=== PATIENT | female | born 2000 | race Two or more races ===

== ENCOUNTER 2022-08-23 12:33 | Emergency (ER) | payer MEDICAID ==
[~2022-08-23] VITALS: Ht 165.1 cm; Wt 76.2 kg
--- NOTE | 2022-08-23 13:16 | NUR ---
URINE SAMPLE OBTAINED AND SENT TO LAB
--- NOTE | 2022-08-23 13:56 | NUR ---
PT STATES "I WANT A WHOLE STD PANEL" DR. BOND MADE AWARE
[2022-08-23] MEDS ORDERED: DOXYCYCLINE HYCLATE (100 MG) 100 MG TABLET PO ONE (14:00)
[2022-08-23] MEDS ORDERED: CEFTRIAXONE 500 MG VIAL IM ONE (14:00)
--- NOTE | 2022-08-23 14:07 | NUR ---
LAB CALLED FOR SWAB
[2022-08-23] MEDS ORDERED: DOXYCYCLINE HYCLATE (100 MG) 100 MG TABLET ONE (14:17)
[2022-08-23] MEDS ORDERED: CEFTRIAXONE 500 MG VIAL ONE (14:17)
--- NOTE | 2022-08-23 14:30 | NUR ---
GENITAL SWABS OBTAINED AND SENT TO LAB
--- NOTE | 2022-08-23 14:59 | NUR ---
LAB CALLED AND CONFIRMED THAT THEY HAVE URINE SPECIMEN. LAB REPORTS THEY WILL RUN THE TEST. PER DR. BOND HOLD ON MEDICATION UNTIL URINE RESULTS
[2022-08-23 15:13] LABS: COLOR,URINE ORANGE (YELLOW)
[2022-08-23 15:22] LABS: BACTERIA,URINE 2+ /HPF (None Seen); RBC,URINE 0-2 /HPF (0-2); SQUAMOUS EPITHELIAL CELL,UR 0-2 /HPF (None Seen); WBC,URINE 51-80 /HPF (0-3)
[2022-08-23] MEDS ORDERED: NITR100C6 PO (15:25)
[2022-08-23] MEDS ORDERED: DOXY100C2 PO (15:25)
[2022-08-23] MEDS ORDERED: PHEN-704 PO (15:25)
[2022-08-23 15:40] VITALS: BP 134/80
== END 2022-08-23 15:41 | disposition home or self-care (01) ==
LOC: ER 12:45
DX: S93.401A Sprain of unspecified ligament of right ankle, initial encounter (principal); N39.0 Urinary tract infection, site not specified; Z20.2 Contact with and (suspected) exposure to infections with a predominantly sexual mode of transmission; Z79.2 Long term (current) use of antibiotics; Z79.899 Other long term (current) drug therapy; W22.8XXA Striking against or struck by other objects, initial encounter; Y93.89 Activity, other specified; Y92.89 Other specified places as the place of occurrence of the external cause; Y99.8 Other external cause status
CPT/HCPCS: 99284; 96372; 73610; 87086; 84703; 81001; 87210; 87110; 87081; 87070; J0696

== ENCOUNTER 2023-02-25 16:56 | Emergency (ER) | payer MEDICAID ==
[~2023-02-25] VITALS: Ht 162.6 cm; Wt 82.6 kg
[~2023-02-25 16:56] MED LIST: DOXY100C2 PO; NITR100C6 PO; PHEN-704 PO
[2023-02-25] MEDS ORDERED: IV NS 0.9% 1,000 ML BAG IV ONE (17:30)
[2023-02-25 18:02] LABS: EOSINOPHILS % (AUTO) 0.6 % (0.0-6.0); HEMATOCRIT 31 % (33-45); HEMOGLOBIN 9.4 g/dL (11.5-14.8); LYMPHOCYTES # (AUTO) 1.7 K/uL (0.8-4.8); LYMPHOCYTES % (AUTO) 35.1 % (20.0-44.0); MEAN CORPUSCULAR HEMOGLOBIN 22 PG (26.0-33.0); MEAN CORPUSCULAR HGB CONC 31 g/dl (31.0-36.0); MEAN CORPUSCULAR VOLUME 73 fL (82-100); MONOCYTES # (AUTO) 0.5 K/uL (0.1-1.30); MONOCYTES % (AUTO) 11.1 % (2.0-12.0); NEUTROPHILS # (AUTO) 2.5 K/uL (1.8-8.9); NEUTROPHILS % (AUTO) 52.2 % (43.0-81.0); PLATELET COUNT (AUTO) 545 K/uL (150-450); RED BLOOD CELL COUNT(AUTO) 4.24 MIL/uL (4.0-5.2); RED CELL DISTRIBUTION WIDTH 19.1 % (11.5-15.0); WHITE BLOOD COUNT (AUTO) 4.8 K/uL (4.3-11.0)
[2023-02-25 18:22] LABS: CALCIUM, SERUM 8.7 mg/dL (8.5-10.1); POTASSIUM 3.4 mmol/L (3.5-5.1)
[2023-02-25 20:16] VITALS: BP 112/68; TEMP 98.5; O2SAT 98
== END 2023-02-25 20:28 | disposition home or self-care (01) ==
LOC: ER 16:59
DX: S01.112A Laceration without foreign body of left eyelid and periocular area, initial encounter (principal); F12.929 Cannabis use, unspecified with intoxication, unspecified; W18.30XA Fall on same level, unspecified, initial encounter; Y93.89 Activity, other specified; Y92.89 Other specified places as the place of occurrence of the external cause; Y99.8 Other external cause status
CPT/HCPCS: 99285; 96360; 93005; 71045; 70450; 85025; 80048; 36415; 80320; J7030; A6403; G0480

== ENCOUNTER 2023-03-24 17:58 | Emergency (ER) | payer MEDICAID ==
[~2023-03-24] VITALS: Ht 162.6 cm; Wt 86.2 kg
[2023-03-24] MEDS ORDERED: CEFTRIAXONE 500 MG VIAL IM ONE (19:00)
[2023-03-24] MEDS ORDERED: CEFTRIAXONE 500 MG VIAL ONE (19:04)
[2023-03-24 20:06] LABS: APPEARANCE,URINE CLEAR (CLEAR); BILIRUBIN,URINE NEGATIVE (NEGATIVE); BLOOD, URINE NEGATIVE Ery/uL (NEGATIVE); COLOR,URINE YELLOW (YELLOW); KETONES,URINE 1+ mg/dL (NEGATIVE); LEUKOCYTE ESTERASE ,URINE TRACE (NEGATIVE); NITRITE, URINE NEGATIVE (NEGATIVE); PH,URINE 5.5 (5.0-8.0); PROTEIN,URINE NEGATIVE (NEGATIVE); UGLUCOSE NEGATIVE (NEGATIVE); UROBILINOGEN,URINE 0.2 EU/dL (0.2)
[2023-03-24 20:10] LABS: PREGNANCY TEST URINE QUAL NEGATIVE (NEGATIVE)
[2023-03-24 20:20] LABS: ADD URINE CULTURE YES; BACTERIA,URINE Rare /HPF (None Seen); RBC,URINE 0-2 /HPF (0-2)
[2023-03-24] MEDS ORDERED: DOXY100C2 PO (20:35)
[2023-03-24] MEDS ORDERED: PHEN-704 PO (20:35)
[2023-03-24] MEDS ORDERED: NITR100C6 PO (20:35)
[2023-03-24 20:51] VITALS: BP 134/78; TEMP 98.3; O2SAT 100
[2023-03-26 15:10] LABS: CHLAMYDIA TRACHOMATIS NAA Negative (Negative); NEISSERIA GONORRHOEAE NAA Negative (Negative)
== END 2023-03-24 20:52 | disposition home or self-care (01) ==
LOC: ER 18:06
DX: N39.0 Urinary tract infection, site not specified (principal); A64 Unspecified sexually transmitted disease
CPT/HCPCS: 99283; 96372; 87086; 84703; 81001; 87491; 87591; J0696

== ENCOUNTER 2023-05-30 06:05 | Emergency (ER) | payer MEDICAID ==
[~2023-05-30] VITALS: Ht 165.1 cm; Wt 86.2 kg
[2023-05-30 06:49] LABS: BASOPHILS % (AUTO) 0.7 % (0.0-2.0); EOSINOPHILS # (AUTO) 0.1 K/uL (0.0-0.7); EOSINOPHILS % (AUTO) 1.5 % (0.0-6.0); HEMATOCRIT 28 % (33-45); HEMOGLOBIN 8.9 g/dL (11.5-14.8); LYMPHOCYTES # (AUTO) 1.4 K/uL (0.8-4.8); LYMPHOCYTES % (AUTO) 36.8 % (20.0-44.0); MEAN CORPUSCULAR HEMOGLOBIN 23 PG (26.0-33.0); MEAN CORPUSCULAR HGB CONC 31 g/dl (31.0-36.0); MEAN CORPUSCULAR VOLUME 73 fL (82-100); MONOCYTES # (AUTO) 0.6 K/uL (0.1-1.30); MONOCYTES % (AUTO) 14.3 % (2.0-12.0); NEUTROPHILS # (AUTO) 1.8 K/uL (1.8-8.9); NEUTROPHILS % (AUTO) 46.7 % (43.0-81.0); PLATELET COUNT (AUTO) 461 K/uL (150-450); RED BLOOD CELL COUNT(AUTO) 3.85 MIL/uL (4.0-5.2); RED CELL DISTRIBUTION WIDTH 19.1 % (11.5-15.0); WHITE BLOOD COUNT (AUTO) 3.8 K/uL (4.3-11.0)
[2023-05-30 07:02] LABS: INR 1.01 (0.91-1.10); PARTIAL THROMBOPLASTIN TIME 25.6 SEC (24.3-34.3); PROTHROMBIN TIME 10.7 SECS (9.2-11.1)
[2023-05-30 07:39] LABS: ALBUMIN 3.3 g/dL (3.4-5.0); BILIRUBIN,DIRECT 0.1 mg/dL (0.0-0.2); BILIRUBIN,TOTAL 0.2 mg/dL (0.2-1.0); CALCIUM, SERUM 8.8 mg/dL (8.5-10.1); CREATININE 0.5 mg/dL (0.6-1.3); POTASSIUM 3.7 mmol/L (3.5-5.1); TOTAL PROTEIN, SERUM 6.7 g/dL (6.4-8.2)
[2023-05-30 09:51] VITALS: BP 126/59; TEMP 97.2; O2SAT 99
== END 2023-05-30 09:52 | disposition home or self-care (01) ==
LOC: ER 06:10
DX: N83.02 Follicular cyst of left ovary (principal); N83.01 Follicular cyst of right ovary; N93.9 Abnormal uterine and vaginal bleeding, unspecified; R10.2 Pelvic and perineal pain
CPT/HCPCS: 36415; 76856-TC; 80048-TC; 80076-TC; 84702-TC; 85025-TC; 85730-TC; 86850-TC